=== PATIENT | female | born 1950 | race Caucasian/White ===

== ENCOUNTER → 2017-10-07 | Outpatient (CLI) | payer OTHER ==
[~2017-10-07] VITALS: Ht 144.8 cm; Wt 33.0 kg
[~2017-10-07] MED LIST: ASPI81 PO; ATOR20TA86 PO; CARV3 PO; CHOL200016 PO; DIGO-44 PO; FERR-89 PO; FISH1CAP63 PO; FOLI1 PO; FURO20 PO; GABA-531 PO; INSU100I26 SQ; METF500T7 PO; MIRT15 PO; PYRI100T2 PO; SACU1TAB7 PO; UBID100C10 PO
[2017-10-07 13:25] VITALS: BP 100/56
== END | disposition home or self-care (01) ==
LOC: SRCNTR 10:07
PROVIDERS: ATTEND Internal Medicine Clinical Cardiac Electrophysiology
DX: Z45.02 Encounter for adjustment and management of automatic implantable cardiac defibrillator (principal); I11.0 Hypertensive heart disease with heart failure; I50.9 Heart failure, unspecified; E11.9 Type 2 diabetes mellitus without complications; I48.0 Paroxysmal atrial fibrillation
CPT/HCPCS: G0463

== ENCOUNTER 2019-08-01 05:45 | Day surgery (SDC) | payer OTHER ==
[~2019-08-01] VITALS: Ht 154.9 cm; Wt 50.5 kg
[~2019-08-01 05:45] MED LIST changes: +ASPI-728 PO; -ASPI81 PO; -ATOR20TA86 PO; +CHOL100018 PO; -CHOL200016 PO; -DIGO-44 PO; +DIGO125T84 PO; +FAMO20 PO; -FERR-89 PO; +FOLI-130 PO; -FOLI1 PO; -FURO20 PO; +FURO40 PO; +GABA-1181 PO; -GABA-531 PO; +METF-911 PO; -METF500T7 PO; -MIRT15 PO; -PYRI100T2 PO; -UBID100C10 PO; +VITA-328 PO
[2019-08-01] MEDS ORDERED: LIDOCAINE/PF 1% 2 ML VIAL IM ONE (05:46)
[2019-08-01] MEDS ORDERED: HYALURONATE SOD/CHONDROITIN SOD 0.5 ML VIAL IO ONE (05:46)
[2019-08-01] MEDS ORDERED: MIDAZOLAM HCL 2 MG/2 ML VIAL IVP ONE (05:46)
[2019-08-01] MEDS ORDERED: POVIDONE-IODINE 10% 15 ML SOLUTION UD TP ONE (05:46)
[2019-08-01] MEDS ORDERED: HYALURONATE SODIUM 12 MG/ML 0.8 ML SYRINGE IO ONE (05:46)
[2019-08-01] MEDS ORDERED: EPINEPHrine 1:1,000 [1 MG/ML] AMP IM ONE (05:46)
[2019-08-01] MEDS ORDERED: FentaNYL CITRATE-PF 100 MCG/2 ML VIAL IVP ONE (05:46)
[2019-08-01] MEDS ORDERED: RINGERS SOLUTION,LACTATED 500 ML IV ONE ×2 (05:55→06:30)
[2019-08-01] MEDS ORDERED: FLURBIPROFEN SODIUM 0.03% 2.5 ML OPHTHALMIC SOLUTION ONE (05:56)
[2019-08-01] MEDS ORDERED: TETRACAINE HCL/PF 0.5% 4 ML OPHTHALMIC SOLUTION ONE (05:56)
[2019-08-01] MEDS ORDERED: TROPICAMIDE 1% 2 ML OPHTHALMIC SOLUTION ONE (05:56)
[2019-08-01] MEDS ORDERED: CYCLOPENTOLATE HCL 1% 2 ML OPHTHALMIC SOLUTION ONE (05:56)
[2019-08-01] MEDS ORDERED: CIPROFLOXACIN HCL 0.3% 2.5 ML OPHTHALMIC SOLUTION ONE (05:56)
[2019-08-01] MEDS: TROPICAMIDE 1% 2 ML OPHTHALMIC SOLUTION OD SCH ×3 (06:13→06:25)
[2019-08-01] MEDS: FLURBIPROFEN SODIUM 0.03% 2.5 ML OPHTHALMIC SOLUTION OD SCH ×3 (06:13→06:25)
[2019-08-01] MEDS: CIPROFLOXACIN HCL 0.3% 2.5 ML OPHTHALMIC SOLUTION OD SCH ×3 (06:13→06:25)
[2019-08-01] MEDS: CYCLOPENTOLATE HCL 1% 2 ML OPHTHALMIC SOLUTION OD SCH ×3 (06:13→06:25)
[2019-08-01] MEDS ORDERED: TETRACAINE HCL/PF 0.5% 4 ML OPHTHALMIC SOLUTION OD ONE (06:30)
== END 2019-08-01 09:33 | disposition home or self-care (01) ==
LOC: SURGERY 05:45
PROVIDERS: ATTEND Ophthalmology
DX: E11.36 Type 2 diabetes mellitus with diabetic cataract (principal); H25.12 Age-related nuclear cataract, left eye; I42.9 Cardiomyopathy, unspecified; E78.00 Pure hypercholesterolemia, unspecified; Z95.0 Presence of cardiac pacemaker; Z79.899 Other long term (current) drug therapy; Z85.028 Personal history of other malignant neoplasm of stomach
CPT/HCPCS: 66984; 93005; J0171; J2250; J3010; J3490 ×2; J7120; U0003; V2632